=== PATIENT | male | born 1970 | race Caucasian/White ===

== ENCOUNTER 2018-12-08 07:41 | Day surgery (SDC) | payer BC ==
[~2018-12-08 07:41] MED LIST: Midazolam 1 MG/ML 2 ML SDV ONE; Propofol 200 MG/20 ML SDV ONE; fentaNYL 100 MCG/2 ML SDV ONE
[2018-12-08] MEDS ORDERED: Lactated Ringers 1,000 ML IV SCH (08:15)
[2018-12-08] MEDS ORDERED: Propofol 200 MG/20 ML SDV ONE (09:09)
--- NOTE | 2018-12-08 13:34 | OR ---
DATE OF PROCEDURE: 12/08/2018 PREOPERATIVE DIAGNOSIS: Family history of neoplastic colon disease, aunt had colon cancer, mother had colon resection for endoscopically-unresectable benign polyp, and younger brother had multiple colon polyps. POSTOPERATIVE DIAGNOSES: Family history of neoplastic colon disease, aunt had colon cancer, mother had colon resection for endoscopically-unresectable benign polyp, and younger brother had multiple colon polyps; multiple colon polyps. PROCEDURES PERFORMED: Colonoscopy to the cecum with biopsy resection and/or snare cautery polypectomy of polyps in right colon, splenic flexure, midtransverse colon, proximal transverse colon, 20 cm from the anal verge and 10 cm from the anal verge. SURGEON: Jose M Sales MD ANESTHESIA: IV anesthesia with monitored anesthesia care. INDICATION: This 48-year-old white male is referred for a colonoscopy because of a strong family history of colonic neoplastic disease. His aunt had colon cancer. His mother had colon resection for an endoscopically-unresectable polyp, which was benign. His younger brother has had multiple precancerous polyps. I counseled him for the procedure, including risks and alternatives, and he gave his informed consent to proceed. DESCRIPTION OF PROCEDURE: The patient was placed in the left lateral decubitus position. IV anesthesia was administered by the anesthesia service. Time-out was held. A rectal exam was performed, which was unremarkable. The flexible video Olympus colonoscope was introduced through his anus, up his rectum and out his colon, all the way to the cecum. Once the cecum was reached, the scope was slowly withdrawn examining the mucosa throughout. We either biopsied and/or snared multiple polyps. The polyps were located in the right colon, the proximal transverse colon, the transverse colon, the splenic flexure, 20 cm from the anal verge and 10 cm from the anal verge, total of 6. The snare involved placing the snare about the base of the polyp, elevating the polyp up away from the bowel wall, and amputating it as electrocautery was applied. Some of the smaller ones we snared were aspirated up through the scope and captured in the polyp trap. The larger ones were aspirated up on the end of the scope, and the scope was removed with the polyp retrieved from the scope. The scope was retroflexed in the rectum with the distal rectum appearing unremarkable. The scope was straightened and removed. He tolerated the procedure well. Jose M Sales MD /[id number]
== END 2018-12-08 10:40 | disposition home or self-care (01) ==
LOC: JP.SDS 07:41
PROVIDERS: ATTEND Surgery
DX: Z12.11 Encounter for screening for malignant neoplasm of colon (principal); D12.2 Benign neoplasm of ascending colon; D12.3 Benign neoplasm of transverse colon; K63.5 Polyp of colon; E11.9 Type 2 diabetes mellitus without complications; E78.5 Hyperlipidemia, unspecified; K21.9 Gastro-esophageal reflux disease without esophagitis; Z83.71 Family history of colonic polyps
CPT/HCPCS: 45385; J2250; J2704; J3010; J7120; 88305

== ENCOUNTER 2019-12-10 06:29 | Day surgery (SDC) | payer BC ==
[2019-12-10] MEDS ORDERED: Sodium Chloride 0.9% 1,000 ML IV SCH (07:00)
[2019-12-10] MEDS ORDERED: Propofol 200 MG/20 ML SDV ONE (08:17)
[2019-12-10] MEDS ORDERED: Midazolam 1 MG/ML 2 ML SDV ONE (08:17)
[2019-12-10] MEDS ORDERED: fentaNYL 100 MCG/2 ML SDV ONE (08:17)
--- NOTE | 2019-12-11 08:37 | OR ---
DATE OF PROCEDURE: 12/10/2019 SURGEON: Connor Mathews MD PROCEDURE: Colonoscopy. FINDINGS: 1. Transverse colon polyp #1, approximately 8 mm, completely removed using hot snare wire device. 2. Transverse colon polyp #2, approximately 5 mm, completely removed using hot snare wire device. 3. Sigmoid colon polyp, approximately 5 mm, completely removed using hot snare wire device. COMPLICATIONS: None. SUPERVISOR CELL EFFICIENCY: None. ANESTHESIA: MAC. PREOPERATIVE DIAGNOSIS: History of colon polyps. POSTOPERATIVE DIAGNOSIS: History of colon polyps. RISKS: Risks, benefits, alternatives, and limitations including, but not limited to infection, bleeding, and perforation were explained to the patient, who wished to proceed. PROCEDURE IN DETAIL: The patient was placed in left lateral decubitus position. Digital rectal exam was performed without abnormality. The scope was introduced and advanced atraumatically to ileocecal valve. A photo was taken. The scope was brought back through the ascending, transverse, descending colon, and retroflexed. The aforementioned polyps were identified and completely removed as described. No abnormal bleeding was noted. No abnormalities on retroflex. Greater than 8 minutes was spent removing the scope. The patient tolerated the procedure well. Connor Mathews MD /[id number]
== END 2019-12-10 10:27 | disposition home or self-care (01) ==
LOC: JP.SDS 06:29
PROVIDERS: ATTEND Surgery
DX: Z12.11 Encounter for screening for malignant neoplasm of colon (principal); D12.3 Benign neoplasm of transverse colon; K21.9 Gastro-esophageal reflux disease without esophagitis; Z86.010 Personal history of colon polyps; Z98.890 Other specified postprocedural states
CPT/HCPCS: 45385; 88305; J2250; J2704; J3010; J7030